=== PATIENT | male | born 1950 | race Caucasian/White ===

== ENCOUNTER 2021-03-05 10:57 | Emergency (ER) | payer MEDICARE, OTHER ==
[~2021-03-05] VITALS: Ht 172.7 cm; Wt 104.5 kg
[2021-03-05 12:17] LABS: BASOPHILS % (AUTO) 0.7 % (0.0-2.0); HEMATOCRIT 30.3 % (41-53); HEMOGLOBIN 9.8 g/dL (13.5-17.5); LYMPHOCYTES % (AUTO) 9.4 % (22.0-44.0); MEAN CORPUSCULAR HEMOGLOBIN 26.6 pg (26.0-34.0); MEAN CORPUSCULAR HGB CONC 32.3 G/dL (31.0-37.0); MEAN CORPUSCULAR VOLUME 82 fL (80-100); MONOCYTES % (AUTO) 9.7 % (2.0-9.0); NEUTROPHILS # (AUTO) 7.8 K/uL (1.8-7.7); NEUTROPHILS % (AUTO) 74.2 % (40.0-70.0); PLATELET COUNT (AUTO) 337 K/uL (150-450); RED BLOOD CELL COUNT(AUTO) 3.68 MIL/uL (4.50-5.90); RED CELL DISTRIBUTION WIDTH 15.6 % (11.5-14.5)
[2021-03-05 12:29] LABS: CALCIUM, TOTAL 8.8 mg/dL (8.8-10.5); CREATININE 2.89 mg/dL (0.60-1.30); POTASSIUM 3.9 mmol/L (3.5-5.1)
[2021-03-05 12:32] LABS: ALBUMIN 2.4 g/dL (3.4-5.0); BILIRUBIN,TOTAL 0.3 mg/dL (0.1-1.0)
[2021-03-05 15:30] VITALS: BP 170/60
[2021-03-05] MEDS ORDERED: METO25XL PO (15:38)
[2021-03-05] MEDS ORDERED: CLON0.3T PO (15:38)
[2021-03-05] MEDS ORDERED: BISA10SU11 PR (15:38)
[2021-03-05] MEDS ORDERED: IBUP-2070 PO (15:38)
[2021-03-05] MEDS ORDERED: ACET-2247 PO (15:38)
[2021-03-05] MEDS ORDERED: QUET300T5 PO (15:38)
[2021-03-05] MEDS ORDERED: NICA PO (15:38)
[2021-03-05] MEDS ORDERED: INSLAN SQ ×2 (15:38)
[2021-03-05] MEDS ORDERED: TRAM50TA4 PO (15:38)
[2021-03-05] MEDS ORDERED: LISI-893 PO (15:38)
[2021-03-05] MEDS ORDERED: CYCL10 PO (15:38)
[2021-03-05] MEDS ORDERED: GABA-1181 PO (15:38)
[2021-03-05] MEDS ORDERED: CHOL100044 PO (15:38)
== END 2021-03-05 15:30 | disposition home or self-care (01) ==
LOC: EMS 11:18
DX: I12.9 Hypertensive chronic kidney disease with stage 1 through stage 4 chronic kidney disease, or unspecified chronic kidney disease (principal); N18.9 Chronic kidney disease, unspecified; R59.0 Localized enlarged lymph nodes; J34.89 Other specified disorders of nose and nasal sinuses; F20.9 Schizophrenia, unspecified; Z88.1 Allergy status to other antibiotic agents
CPT/HCPCS: 70490; 80053; 85025; 99285